=== PATIENT | male | born 1960 | race Caucasian/White ===

== ENCOUNTER 2018-04-18 12:39 | Emergency (ER) | payer SELFPAY ==
[~2018-04-18] VITALS: Ht 175.3 cm; Wt 89.8 kg
[2018-04-18 12:41] VITALS: BP 145/80
--- NOTE | 2018-04-18 12:44 | NUR ---
PT AMBULATED TO BED 8
--- NOTE | 2018-04-18 12:45 | NUR ---
DR REED EVALUATING PT AT BEDSIDE
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
[2018-04-18] MEDS ORDERED: ONDANSETRON 4 MG ODT PO ONE (12:55)
[2018-04-18] MEDS ORDERED: ACETAMINOPHEN 325 MG TAB PO ONE (12:55)
[2018-04-18 13:18] VITALS: BP 147/86
--- NOTE | 2018-04-18 13:18 | NUR ---
Patient discharged with v/s stable. Written and verbal after care instructions given and explained. Patient alert, oriented and verbalized understanding of instructions. Ambulatory with steady gait. All questions addressed prior to discharge. ID band removed. Patient advised to follow up with PMD. Rx of ZOFRAN 4MG given. Patient educated on indication of medication including possible reaction and side effects. Opportunity to ask questions provided and answered.
== END 2018-04-18 13:18 | disposition home or self-care (01) ==
LOC: MED 12:39
DX: S06.0X0A Concussion without loss of consciousness, initial encounter (principal); R03.0 Elevated blood-pressure reading, without diagnosis of hypertension; X58.XXXA Exposure to other specified factors, initial encounter; Y93.89 Activity, other specified; Y92.89 Other specified places as the place of occurrence of the external cause; Y99.8 Other external cause status
CPT/HCPCS: 99283; S0119

== ENCOUNTER 2020-11-05 16:48 | Emergency (ER) | payer SELFPAY ==
[~2020-11-05] VITALS: Ht 175.3 cm; Wt 86.2 kg
[2020-11-05 17:38] VITALS: BP 134/76
[2020-11-05] MEDS: KETOROLAC 60 MG/2 ML VIAL IM ONE (18:38)
--- NOTE | 2020-11-05 18:40 | NUR ---
C/O R UPPPER TOOTH PAIN RADIATING TO L EAR X3 DAYS. PT IS TAKING TYLENOL AT HOME WITH NO RELIEF.
--- NOTE | 2020-11-05 18:50 | NUR ---
Patient discharged with v/s stable. Written and verbal after care instructions given and explained. Patient alert, oriented and verbalized understanding of instructions. Ambulatory with steady gait. All questions addressed prior to discharge. ID band removed. Patient advised to follow up with PMD. Rx of NORCO, AMOXICILLIN given. Patient educated on indication of medication including possible reaction and side effects. Opportunity to ask questions provided and answered.
[2020-11-05 18:52] VITALS: BP 134/76
== END 2020-11-05 18:50 | disposition home or self-care (01) ==
LOC: MED 16:48
DX: K08.89 Other specified disorders of teeth and supporting structures (principal)
CPT/HCPCS: 96372; 99283; J1885

== ENCOUNTER 2021-03-29 15:49 | Emergency (ER) | payer SELFPAY ==
[~2021-03-29] VITALS: Ht 175.3 cm; Wt 88.5 kg
[2021-03-29 16:06] VITALS: BP 138/86
--- NOTE | 2021-03-29 16:23 | NUR ---
PATIENT PRESENTS TO ED WITH TOOTH PAIN. PT STATES THAT A TOOTH ON HIS RIGHT SIDE HAS BEEN HURTING FOR "A FEW DAYS." HE STATES THAT THE PAIN IS 10/10, PRESSURE-LIKE. UPON EXAMINATION, SEVERAL TEETH ALONG THE RIGHT SIDE ARE NOTED TO BE PARTIALLY NON-INTACT; DENIES N/V/D; SKIN IS PINK/WARM/DRY; AAOX4 WITH EVEN AND STEADY GAIT; LUNGS CLEAR BL; HR EVEN AND REGULAR; PT DENIES ANY FEVER, CP, SOB, OR COUGH AT THIS TIME; VSS; PATIENT POSITIONED FOR COMFORT; PT SITTING IN CHAIR; ER MD MADE AWARE OF PT STATUS. NO PHM NKA
[2021-03-29] MEDS ORDERED: AMOX500C25 PO (16:39)
[2021-03-29] MEDS ORDERED: NAPR-54 PO (16:39)
--- NOTE | 2021-03-29 16:56 | NUR ---
Patient discharged with v/s stable. Written and verbal after care instructions given and explained. Patient alert, oriented and verbalized understanding of instructions. Ambulatory with steady gait. All questions addressed prior to discharge. ID band removed. Patient advised to follow up with PMD. Rx of AMOXICILLIN, NAPROSYN given. Patient educated on indication of medication including possible reaction and side effects. Opportunity to ask questions provided and answered.
[2021-03-29 16:57] VITALS: BP 138/86
== END 2021-03-29 16:55 | disposition home or self-care (01) ==
LOC: MED 15:49
DX: K08.89 Other specified disorders of teeth and supporting structures (principal); Z79.899 Other long term (current) drug therapy
CPT/HCPCS: 99283

== ENCOUNTER 2022-01-25 19:00 | Emergency (ER) | payer MEDICAID ==
[~2022-01-25] VITALS: Ht 175.3 cm; Wt 88.7 kg
[~2022-01-25 19:00] MED LIST: AMOX500C25 PO; NAPR-54 PO
[2022-01-25 19:21] VITALS: BP 134/86
--- NOTE | 2022-01-25 19:24 | NUR ---
pt sent to lobby, waiting for bed.
[2022-01-25] MEDS ORDERED: ACET-8386 PO (19:30)
[2022-01-25] MEDS ORDERED: AMOX-1000 PO (19:30)
[2022-01-25] MEDS: KETOROLAC 30 MG/ML VIAL IM ONE (19:46)
[2022-01-25 19:50] VITALS: BP 134/86
--- NOTE | 2022-01-25 19:50 | NUR ---
Patient discharged with v/s stable. Written and verbal after care instructions given and explained. Patient alert, oriented and verbalized understanding of instructions. Ambulatory with steady gait. All questions addressed prior to discharge. ID band removed. Patient advised to follow up with PMD. Rx of AUGMENTIN AND HYDROCODONE/ACETAMINOPHEN given. Patient educated on indication of medication including possible reaction and side effects. Opportunity to ask questions provided and answered.
== END 2022-01-25 19:50 | disposition home or self-care (01) ==
LOC: MED 19:00
DX: K08.89 Other specified disorders of teeth and supporting structures (principal); Z79.899 Other long term (current) drug therapy
CPT/HCPCS: 96372; 99283; J1885

== ENCOUNTER 2022-09-01 15:27 | Emergency (ER) | payer MEDICAID ==
[~2022-09-01] VITALS: Ht 175.3 cm; Wt 88.9 kg
[~2022-09-01 15:27] MED LIST changes: +ACET-8386 PO; +AMOX-1000 PO
[2022-09-01 15:39] VITALS: BP 140/77
[2022-09-01] MEDS ORDERED: FLUORESCEIN OPTH STRIP 1 MG OP ONE (16:05)
[2022-09-01] MEDS ORDERED: TETRACAINE HCL/PF 0.5% OPTH 4 ML BTL OP ONE (16:05)
--- NOTE | 2022-09-01 16:47 | NUR ---
PA Daley evaluating patient at bedside.
[2022-09-01] MEDS ORDERED: IBUP-2213 PO (18:10)
[2022-09-01] MEDS ORDERED: ACET-8386 PO (18:10)
[2022-09-01] MEDS ORDERED: ACYC-279 PO (18:10)
[2022-09-01] MEDS ORDERED: GABA300C PO (18:10)
[2022-09-01 18:23] VITALS: BP 133/70
--- NOTE | 2022-09-01 18:24 | NUR ---
Patient discharged with v/s stable. Written and verbal after care instructions given and explained. Patient alert, oriented and verbalized understanding of instructions. Ambulatory with steady gait. All questions addressed prior to discharge. ID band removed. Patient advised to follow up with PMD. Rx of NORCO, ACYCLYVIR given. Patient educated on indication of medication including possible reaction and side effects. Opportunity to ask questions provided and answered.
== END 2022-09-01 18:24 | disposition home or self-care (01) ==
LOC: MED 15:27
DX: R21 Rash and other nonspecific skin eruption (principal)
CPT/HCPCS: 99283